=== PATIENT | male | born 1995 | race Hispanic/Latino ===

== ENCOUNTER 2018-08-07 17:34 | Emergency (ER) | payer BC | END 2018-08-07 19:05 | disposition home or self-care (01) | LOC: EDH 17:34 | DX: S93.492A Sprain of other ligament of left ankle, initial encounter (principal); X58.XXXA Exposure to other specified factors, initial encounter; Y93.89 Activity, other specified; Y92.488 Other paved roadways as the place of occurrence of the external cause; Y99.8 Other external cause status | CPT/HCPCS: 73610 ==

== ENCOUNTER 2020-06-09 11:47 | Inpatient (IN) | payer BC, OTHER ==
[~2020-06-09] VITALS: Ht 170.2 cm; Wt 137.3 kg
[2020-06-09 12:15] LABS: BASOPHILS % (AUTO) 0.2 % (0.0-5.0); HEMATOCRIT 40.5 % (42-54); LYMPHOCYTES % (AUTO) 12.1 % (21.0-51.0); MEAN CORPUSCULAR HEMOGLOBIN 27.5 pg (27.0-33.0); MEAN CORPUSCULAR HGB CONC 33.3 g/dL (32.0-36.0); MEAN CORPUSCULAR VOLUME 82.5 fL (79-99); MONOCYTES % (AUTO) 4.3 % (3.0-13.0); PLATELET COUNT (AUTO) 171 K/uL (130-400); RED BLOOD CELL COUNT(AUTO) 4.91 MIL/uL (4.50-6.20); RED CELL DISTRIBUTION WIDTH 13.2 % (11.0-15.5); WHITE BLOOD COUNT (AUTO) 5.4 K/uL (4.8-10.8)
[2020-06-09 12:25] LABS: INR 0.98 (0.85-1.15); PROTHROMBIN TIME 10.7 SEC (9.6-11.6)
[2020-06-09 12:28] LABS: CARBON DIOXIDE 27 mmol/L (21-32); CHLORIDE 101 mmol/L (101-111); GLOMERULAR FILTR. RATE CALC 98 mL/min (>60); GLUCOSE,RANDOM 101 mg/dL (70-105); POTASSIUM 3.5 mmol/L (3.5-5.1); SODIUM SERUM 137 mmol/L (136-145); UREA NITROGEN, BLOOD 10 mg/dL (7-18)
[2020-06-09 12:52] LABS: ALANINE AMINOTRANSFERASE 67 U/L (12-78); ALBUMIN 3.6 g/dL (3.5-5.0); ASPARTATE AMINOTRANSFERASE 51 U/L (10-37); BILIRUBIN,TOTAL 0.4 mg/dL (0.2-1.0); CREATINE KINASE, TOTAL 209 U/L (21-232); MYOGLOBIN 67 ng/mL (10-92); TOTAL PROTEIN, SERUM 7.7 g/dL (6.0-8.3); TROPONIN I < 0.04 ng/mL (0.00-0.06)
[2020-06-09] MEDS ORDERED: IBUPROFEN 600 MG TABLET ONE (13:12)
[2020-06-09] MEDS ORDERED: ACETAMINOPHEN EXTRA STRENGTH 500 MG TABLET ONE (13:13)
[2020-06-09 14:00] LABS: ABG BASE EXCESS -1.5 mmol/L (-2.0-3.0); ABG HCO3 22.1 mmol/L (21.0-28.0); ABG OXYGEN SATURATION 93.9 % (95.0-99.0); ABG PCO2 35 mmHg (35-48)
[2020-06-09 14:04] LABS: APPEARANCE,URINE Clear (CLEAR); BILIRUBIN,URINE Negative (NEGATIVE); COLOR,URINE Yellow (YELLOW); GLUCOSE, URINE (UA) Negative (NEGATIVE); KETONES,URINE Trace mg/dL (NEGATIVE); LEUKOCYTE ESTERASE ,URINE Negative (NEGATIVE); NITRATE,URINE Negative (NEGATIVE); OCCULT BLOOD,URINE Negative (NEGATIVE); PROTEIN,URINE POS 1+ mg/dL (NEGATIVE); UROBILINOGEN,URINE 0.2 mg/dL (0.2-1.0)
[2020-06-09 14:14] LABS: BACTERIA,URINE Rare /HPF (None Seen); MUCUS,URINE Few LPF (None Seen); RBC,URINE 0-1 /HPF (0-1); SQUAMOUS EPITHELIAL CELL,UR Rare /HPF (0-2); WBC,URINE 0-1 /HPF (0-1)
[2020-06-09] MEDS ORDERED: ERGOCALCIFEROL (VITAMIN D2) 50,000 UNIT CAPSULE PO ONE (15:15)
[2020-06-09] MEDS ORDERED: DOXYCYCLINE 100MG+NS 250ML IV SCH (15:15)
[2020-06-09] MEDS: CEFTRIAXONE SODIUM 1 GM IVP SCH (15:15)
[2020-06-09] MEDS ORDERED: LACTATED RINGERS 1000ML 1,000 ML IV SCH (15:15)
[2020-06-09] MEDS ORDERED: AZITHROMYCIN 500MG+NS 250ML 250 ML IV ONE (15:28)
[2020-06-09] MEDS ORDERED: CEFTRIAXONE SODIUM 1 GM ONE (15:28)
[2020-06-09] MEDS ORDERED: DEXAMETHASONE SOD PHOSPHATE 10MG/ML 1ML VIAL ONE (15:28)
[2020-06-09] MEDS: DOXYCYCLINE 100MG+NS 250ML 250 ML IV SCH (16:00)
[2020-06-09 16:13] LABS: CRP QUANTITATIVE 95.8 mg/L (0.00-9.0)
[2020-06-09] MEDS: METHYLPREDNISOLONE SOD SUCC 125MG/2ML VIAL IVP SCH ×2 (17:00→23:19)
[2020-06-09] MEDS ORDERED: DOXYCYCLINE 100MG+NS 250ML 250 ML IV ONE (17:13)
[2020-06-09] MEDS ORDERED: LACTATED RINGERS 1000ML 1,000 ML IV ONE (17:13)
[2020-06-09] MEDS ORDERED: ERGOCALCIFEROL (VITAMIN D2) 50,000 UNIT CAPSULE ONE (17:41)
[2020-06-09] MEDS: ACETYLCYSTEINE 600 MG CAPSULE PO SCH (21:00)
[2020-06-09] MEDS: ENOXAPARIN SODIUM 40 MG/0.4 ML SYRINGE SQ SCH (21:00)
[2020-06-09] MEDS ORDERED: ACETYLCYSTEINE 600 MG CAPSULE ONE (21:10)
[2020-06-09] MEDS ORDERED: ENOXAPARIN SODIUM 40 MG/0.4 ML SYRINGE SQ ONE (21:11)
[2020-06-09 22:00] VITALS: BP 121/65
[2020-06-09] MEDS ORDERED: PHARMACY COMMUNICATION MISC SCH (23:00)
[2020-06-10] VITALS: BP 123/72
[2020-06-10] MEDS: CEFTRIAXONE SODIUM 1 GM IVP SCH ×2 (03:58→15:14)
[2020-06-10 04:00] VITALS: BP 126/51
[2020-06-10 04:15] LABS: HEMATOCRIT 41.2 % (42-54); MEAN CORPUSCULAR HEMOGLOBIN 26.3 pg (27.0-33.0); MEAN CORPUSCULAR HGB CONC 31.3 g/dL (32.0-36.0); MEAN CORPUSCULAR VOLUME 84.1 fL (79-99); MONOCYTES % (AUTO) 3.2 % (3.0-13.0); NEUTROPHILS % (AUTO) 72.3 % (40.0-77.0); PLATELET COUNT (AUTO) 191 K/uL (130-400); RED CELL DISTRIBUTION WIDTH 12.8 % (11.0-15.5); WHITE BLOOD COUNT (AUTO) 2.2 K/uL (4.8-10.8)
[2020-06-10] MEDS: DOXYCYCLINE 100MG+NS 250ML 250 ML IV SCH ×2 (04:17→15:14)
[2020-06-10 04:39] LABS: BILIRUBIN,TOTAL 0.3 mg/dL (0.2-1.0); CREATININE 0.8 mg/dL (0.5-1.5); POTASSIUM 3.6 mmol/L (3.5-5.1); TOTAL PROTEIN, SERUM 7.3 g/dL (6.0-8.3)
[2020-06-10] MEDS: METHYLPREDNISOLONE SOD SUCC 125MG/2ML VIAL IVP SCH ×4 (05:41→22:25)
[2020-06-10] MEDS ORDERED: REMDESIVIR (EUA) 520 200 MG in SODIUM CHLORIDE 0.9% 250 ML IV ONE (07:00)
[2020-06-10] MEDS ORDERED: COMPOUND IV REFRIGERATED 1 EACH IVSOLN MISC PRN (07:00)
[2020-06-10 07:48] VITALS: BP 127/67
[2020-06-10] MEDS: IPRATROPIUM 0.5 MG/2.5 ML INH IH SCH ×2 (08:15→12:15)
[2020-06-10] MEDS: PANTOPRAZOLE SODIUM 40 MG TABLET.DR PO SCH (08:33)
[2020-06-10] MEDS: ZINC SULFATE 220 CAPSULE PO SCH (08:33)
[2020-06-10] MEDS: BENZONATATE 100 MG CAPSULE PO SCH ×2 (08:33→15:38)
[2020-06-10] MEDS: ACETYLCYSTEINE 600 MG CAPSULE PO SCH ×2 (08:34→20:49)
[2020-06-10] MEDS: ASCORBIC ACID 500 MG TAB PO SCH (08:34)
[2020-06-10] MEDS: ENOXAPARIN SODIUM 40 MG/0.4 ML SYRINGE SQ SCH ×2 (08:34→20:51)
[2020-06-10] MEDS ORDERED: ENOXAPARIN SODIUM 40 MG/0.4 ML SYRINGE SQ SCH (09:00)
[2020-06-10] MEDS: ALBUTEROL INHALER 90MCG/INH IH SCH ×4 (10:00→22:25)
[2020-06-10 11:12] VITALS: BP 125/48
[2020-06-10] MEDS: INSULIN HUMULIN R 100 UNIT/ML 3ML SQ SCH ×3 (11:28→20:49)
[2020-06-10 16:05] VITALS: BP 120/52
[2020-06-10 20:00] VITALS: BP 117/54
[2020-06-11] VITALS: BP 106/47
[2020-06-11] MEDS: BENZONATATE 100 MG CAPSULE PO SCH ×3 (00:33→15:49)
[2020-06-11] MEDS: CEFTRIAXONE SODIUM 1 GM IVP SCH ×2 (02:19→15:48)
[2020-06-11] MEDS: ALBUTEROL INHALER 90MCG/INH IH SCH ×6 (02:27→21:07)
[2020-06-11 04:00] VITALS: BP 111/55
[2020-06-11] MEDS: DOXYCYCLINE 100MG+NS 250ML 250 ML IV SCH ×2 (04:17→15:48)
[2020-06-11 04:45] LABS: BASOPHILS % (AUTO) 0.1 % (0.0-5.0); HEMATOCRIT 36.9 % (42-54); LYMPHOCYTES % (AUTO) 8.9 % (21.0-51.0); MEAN CORPUSCULAR HEMOGLOBIN 27.4 pg (27.0-33.0); MEAN CORPUSCULAR HGB CONC 32.8 g/dL (32.0-36.0); MEAN CORPUSCULAR VOLUME 83.5 fL (79-99); MONOCYTES % (AUTO) 3.5 % (3.0-13.0); NEUTROPHILS % (AUTO) 87.2 % (40.0-77.0); PLATELET COUNT (AUTO) 215 K/uL (130-400); RED BLOOD CELL COUNT(AUTO) 4.42 MIL/uL (4.50-6.20); RED CELL DISTRIBUTION WIDTH 13.1 % (11.0-15.5); WHITE BLOOD COUNT (AUTO) 9.5 K/uL (4.8-10.8)
[2020-06-11 05:17] LABS: ALBUMIN 2.9 g/dL (3.5-5.0); BILIRUBIN,DIRECT 0.1 mg/dL (0.0-0.3); BILIRUBIN,TOTAL 0.2 mg/dL (0.2-1.0); CREATININE 0.8 mg/dL (0.5-1.5); CRP QUANTITATIVE 34.3 mg/L (0.00-9.0); POTASSIUM 3.7 mmol/L (3.5-5.1); TOTAL PROTEIN, SERUM 6.8 g/dL (6.0-8.3)
[2020-06-11] MEDS: REMDESIVIR LABS MISC SCH (06:00)
[2020-06-11] MEDS: METHYLPREDNISOLONE SOD SUCC 125MG/2ML VIAL IVP SCH ×3 (06:22→21:07)
[2020-06-11] MEDS: INSULIN HUMULIN R 100 UNIT/ML 3ML SQ SCH ×4 (07:04→21:00)
[2020-06-11 07:47] VITALS: BP 118/59
[2020-06-11] MEDS: ZINC SULFATE 220 CAPSULE PO SCH (08:29)
[2020-06-11] MEDS: PANTOPRAZOLE SODIUM 40 MG TABLET.DR PO SCH (08:29)
[2020-06-11] MEDS: ASCORBIC ACID 500 MG TAB PO SCH (08:29)
[2020-06-11] MEDS: ACETYLCYSTEINE 600 MG CAPSULE PO SCH ×2 (08:29→20:51)
[2020-06-11 11:46] VITALS: BP 116/53
[2020-06-11] MEDS: REMDESIVIR (EUA) 520 100 MG in SODIUM CHLORIDE 0.9% 250 ML IV SCH (12:25)
[2020-06-11 16:00] VITALS: BP 119/55
[2020-06-11 20:00] VITALS: BP 118/70
[2020-06-11] MEDS: ENOXAPARIN SODIUM 40 MG/0.4 ML SYRINGE SQ SCH (20:52)
[2020-06-12] VITALS: BP 115/53
[2020-06-12] MEDS: BENZONATATE 100 MG CAPSULE PO SCH ×3 (00:30→17:01)
[2020-06-12 03:49] LABS: BASOPHILS % (AUTO) 0.1 % (0.0-5.0); HEMATOCRIT 36.9 % (42-54); LYMPHOCYTES % (AUTO) 11.1 % (21.0-51.0); MEAN CORPUSCULAR HEMOGLOBIN 26.3 pg (27.0-33.0); MEAN CORPUSCULAR HGB CONC 31.7 g/dL (32.0-36.0); MEAN CORPUSCULAR VOLUME 82.9 fL (79-99); NEUTROPHILS % (AUTO) 83.1 % (40.0-77.0); PLATELET COUNT (AUTO) 227 K/uL (130-400); RED BLOOD CELL COUNT(AUTO) 4.45 MIL/uL (4.50-6.20); RED CELL DISTRIBUTION WIDTH 13.2 % (11.0-15.5); WHITE BLOOD COUNT (AUTO) 8.5 K/uL (4.8-10.8)
[2020-06-12 04:00] VITALS: BP 117/43
[2020-06-12 04:05] LABS: ALBUMIN 2.8 g/dL (3.5-5.0); BILIRUBIN,DIRECT 0.1 mg/dL (0.0-0.3); BILIRUBIN,TOTAL 0.2 mg/dL (0.2-1.0); CREATININE 0.8 mg/dL (0.5-1.5); CRP QUANTITATIVE 12.2 mg/L (0.00-9.0); POTASSIUM 3.7 mmol/L (3.5-5.1); TOTAL PROTEIN, SERUM 6.4 g/dL (6.0-8.3)
[2020-06-12] MEDS: REMDESIVIR LABS MISC SCH (05:07)
[2020-06-12] MEDS: ALBUTEROL INHALER 90MCG/INH IH SCH ×6 (05:08→21:53)
[2020-06-12] MEDS: CEFTRIAXONE SODIUM 1 GM IVP SCH ×2 (05:18→15:17)
[2020-06-12] MEDS: METHYLPREDNISOLONE SOD SUCC 125MG/2ML VIAL IVP SCH ×3 (05:20→21:53)
[2020-06-12] MEDS: DOXYCYCLINE 100MG+NS 250ML 250 ML IV SCH ×2 (05:23→15:17)
[2020-06-12] MEDS: INSULIN HUMULIN R 100 UNIT/ML 3ML SQ SCH ×4 (05:59→21:00)
[2020-06-12 07:42] VITALS: BP 118/71
[2020-06-12] MEDS: ASCORBIC ACID 500 MG TAB PO SCH (08:14)
[2020-06-12] MEDS: ACETYLCYSTEINE 600 MG CAPSULE PO SCH ×2 (08:14→21:53)
[2020-06-12] MEDS: PANTOPRAZOLE SODIUM 40 MG TABLET.DR PO SCH (08:14)
[2020-06-12] MEDS: ZINC SULFATE 220 CAPSULE PO SCH (08:14)
[2020-06-12] MEDS: ENOXAPARIN SODIUM 40 MG/0.4 ML SYRINGE SQ SCH (08:24)
[2020-06-12 12:00] VITALS: BP 126/49
[2020-06-12] MEDS: REMDESIVIR (EUA) 520 100 MG in SODIUM CHLORIDE 0.9% 250 ML IV SCH (12:26)
[2020-06-12 16:00] VITALS: BP 117/56
[2020-06-12 20:00] VITALS: BP 120/54
[2020-06-13] VITALS (7 sets, daily range): BP systolic 119–127; BP diastolic 50–70
[2020-06-13] MEDS: BENZONATATE 100 MG CAPSULE PO SCH ×4 (01:53→23:43)
[2020-06-13] MEDS: ALBUTEROL INHALER 90MCG/INH IH SCH ×6 (01:55→22:00)
[2020-06-13] MEDS: CEFTRIAXONE SODIUM 1 GM IVP SCH ×2 (03:53→15:38)
[2020-06-13] MEDS: DOXYCYCLINE 100MG+NS 250ML 250 ML IV SCH ×2 (03:55→15:39)
[2020-06-13 05:00] LABS: ALBUMIN 2.8 g/dL (3.5-5.0); BILIRUBIN,DIRECT 0.1 mg/dL (0.0-0.3); BILIRUBIN,TOTAL 0.3 mg/dL (0.2-1.0); TOTAL PROTEIN, SERUM 6.4 g/dL (6.0-8.3)
[2020-06-13] MEDS: REMDESIVIR LABS MISC SCH (05:44)
[2020-06-13] MEDS: METHYLPREDNISOLONE SOD SUCC 125MG/2ML VIAL IVP SCH ×3 (06:30→21:51)
[2020-06-13] MEDS: INSULIN HUMULIN R 100 UNIT/ML 3ML SQ SCH ×4 (06:40→20:50)
[2020-06-13] MEDS: PANTOPRAZOLE SODIUM 40 MG TABLET.DR PO SCH (08:38)
[2020-06-13] MEDS: ACETYLCYSTEINE 600 MG CAPSULE PO SCH ×2 (08:38→21:51)
[2020-06-13] MEDS: ENOXAPARIN SODIUM 40 MG/0.4 ML SYRINGE SQ SCH (08:39)
[2020-06-13] MEDS: REMDESIVIR (EUA) 520 100 MG in SODIUM CHLORIDE 0.9% 250 ML IV SCH (13:48)
[2020-06-14] MEDS: ALBUTEROL INHALER 90MCG/INH IH SCH ×4 (02:00→13:16)
[2020-06-14] MEDS: CEFTRIAXONE SODIUM 1 GM IVP SCH (02:59)
[2020-06-14] MEDS: DOXYCYCLINE 100MG+NS 250ML 250 ML IV SCH (03:01)
[2020-06-14 03:24] VITALS: BP 114/60
[2020-06-14 03:52] LABS: BASOPHILS % (AUTO) 0.2 % (0.0-5.0); HEMATOCRIT 36.7 % (42-54); LYMPHOCYTES % (AUTO) 9.3 % (21.0-51.0); MEAN CORPUSCULAR HEMOGLOBIN 27.1 pg (27.0-33.0); MEAN CORPUSCULAR VOLUME 82.1 fL (79-99); MONOCYTES % (AUTO) 5.4 % (3.0-13.0); NEUTROPHILS % (AUTO) 80.9 % (40.0-77.0); NUCLEATED RED BLOOD CELLS 0.3 % (0.0-0.19); PLATELET COUNT (AUTO) 265 K/uL (130-400); RED BLOOD CELL COUNT(AUTO) 4.47 MIL/uL (4.50-6.20); RED CELL DISTRIBUTION WIDTH 12.9 % (11.0-15.5); WHITE BLOOD COUNT (AUTO) 9.5 K/uL (4.8-10.8)
[2020-06-14 04:13] LABS: ALBUMIN 2.7 g/dL (3.5-5.0); BILIRUBIN,DIRECT 0.1 mg/dL (0.0-0.3); BILIRUBIN,TOTAL 0.2 mg/dL (0.2-1.0); CREATININE 0.8 mg/dL (0.5-1.5); POTASSIUM 3.7 mmol/L (3.5-5.1); TOTAL PROTEIN, SERUM 6.1 g/dL (6.0-8.3)
[2020-06-14 04:20] LABS: CRP QUANTITATIVE 1.9 mg/L (0.00-9.0)
[2020-06-14] MEDS: METHYLPREDNISOLONE SOD SUCC 125MG/2ML VIAL IVP SCH ×2 (06:14→13:15)
[2020-06-14] MEDS: INSULIN HUMULIN R 100 UNIT/ML 3ML SQ SCH ×2 (06:33→13:08)
[2020-06-14] MEDS: REMDESIVIR LABS MISC SCH (06:33)
[2020-06-14 08:00] VITALS: BP 127/57
[2020-06-14] MEDS: BENZONATATE 100 MG CAPSULE PO SCH (08:18)
[2020-06-14] MEDS: ENOXAPARIN SODIUM 40 MG/0.4 ML SYRINGE SQ SCH (08:19)
[2020-06-14] MEDS: PANTOPRAZOLE SODIUM 40 MG TABLET.DR PO SCH (08:19)
[2020-06-14] MEDS: ACETYLCYSTEINE 600 MG CAPSULE PO SCH (08:19)
[2020-06-14] MEDS ORDERED: ASPI-1026 PO (11:57)
[2020-06-14] MEDS ORDERED: DOXY100C2 PO (11:57)
[2020-06-14] MEDS ORDERED: METH4TAB3 PO (11:57)
[2020-06-14 12:00] VITALS: BP 126/58
[2020-06-14] MEDS: REMDESIVIR (EUA) 520 100 MG in SODIUM CHLORIDE 0.9% 250 ML IV SCH (13:11)
== END 2020-06-14 16:30 | disposition home or self-care (01) | DRG 177 ==
LOC: EDH 11:47 → OBSVTOIN 15:05 → EDHIP 15:05 → 2AH 21:42
PROVIDERS: ADMIT Internal Medicine; ATTEND Internal Medicine
PROC: XW033E5 Introduction of Remdesivir Anti-infective into Peripheral Vein, Percutaneous Approach, New Technology Group 5 (ICD-10-PCS; principal; 2020-06-10)
DX: U07.1 COVID-19 (principal); J12.82 Pneumonia due to coronavirus disease 2019; J96.01 Acute respiratory failure with hypoxia; Z68.41 Body mass index [BMI] 40.0-44.9, adult; D68.59 Other primary thrombophilia; R04.2 Hemoptysis; E66.01 Morbid (severe) obesity due to excess calories; R73.03 Prediabetes; R74.01 Elevation of levels of liver transaminase levels
CPT/HCPCS: 36415; 36600; 71045; 71250; 80053; 80076; 81001; 82248; 82550; 82728; 82803; 82948; 83036; 83605; 83615; 83874; 84145; 84484; 85025; 85378; 85610; 85730; 86140; 86900; 86901; 87040; 87088; 87804; 93005; 93970; 94760; G0378; J0456; J0696; J1100; J1650; J2930; J3490; J7050; J7120; U0003

== ENCOUNTER 2020-10-20 12:00 | Emergency (ER) | payer OTHER, BC ==
[~2020-10-20] VITALS: Ht 170.2 cm; Wt 140.6 kg
[~2020-10-20 12:00] MED LIST: ASPI-1026 PO; DOXY100C5 PO; METH4TAB3 PO
[2020-10-20 12:03] VITALS: BP 121/81
[2020-10-20] MEDS ORDERED: ACETAMINOPHEN 500 MG TABLET PO ONE (13:00)
[2020-10-20] MEDS ORDERED: 0.9%NACL 1000ML 1,000 ML IV ONE (13:00)
[2020-10-20] MEDS ORDERED: KETOROLAC 15MG/ML VIAL (15MG/ML) IV ONE (13:00)
[2020-10-20] MEDS ORDERED: CEFTRIAXONE 1G VIAL 1 GM in 0.9%NACL 100ML 100 ML IV ONE (13:00)
[2020-10-20 13:16] LABS: BASOPHILS % (AUTO) 0.2 % (0.0-5.0); EOSINOPHILS % (AUTO) 0.1 % (0.0-8.0); HEMATOCRIT 39.6 % (42-54); LYMPHOCYTES % (AUTO) 2.5 % (21.0-51.0); MEAN CORPUSCULAR HEMOGLOBIN 27.4 pg (27.0-33.0); MEAN CORPUSCULAR HGB CONC 32.8 g/dL (32.0-36.0); MEAN CORPUSCULAR VOLUME 83.4 fL (79-99); NEUTROPHILS % (AUTO) 90.6 % (40.0-77.0); PLATELET COUNT (AUTO) 205 K/uL (130-400); RED BLOOD CELL COUNT(AUTO) 4.75 MIL/uL (4.50-6.20); RED CELL DISTRIBUTION WIDTH 13.1 % (11.0-15.5); WHITE BLOOD COUNT (AUTO) 18.7 K/uL (4.8-10.8)
[2020-10-20] MEDS ORDERED: CEFTRIAXONE 1G VIAL IVP ONE (13:30)
[2020-10-20 14:16] VITALS: BP 125/75
[2020-10-20 14:30] LABS: POTASSIUM 3.7 mmol/L (3.5-5.1)
[2020-10-20 14:31] LABS: ALBUMIN 3.8 g/dL (3.5-5.0); BILIRUBIN,TOTAL 0.5 mg/dL (0.2-1.0); TOTAL PROTEIN, SERUM 7.5 g/dL (6.0-8.3)
[2020-10-20] MEDS ORDERED: CEPH500B PO (15:21)
== END 2020-10-20 15:55 | disposition home or self-care (01) ==
LOC: EDH 12:00
DX: L03.116 Cellulitis of left lower limb (principal); I10 Essential (primary) hypertension; E10.9 Type 1 diabetes mellitus without complications; Z79.1 Long term (current) use of non-steroidal anti-inflammatories (NSAID); Z79.52 Long term (current) use of systemic steroids; Z79.82 Long term (current) use of aspirin; Z86.16 Personal history of COVID-19
CPT/HCPCS: 36415; 80053; 85025; 93971; 96361; 96374; 96375; 99284; J0696; J1885; J7030